=== PATIENT | female | born 1985 ===

== ENCOUNTER 2025-01-16 05:29 | Day surgery (SDC) | payer OTHER ==
[2025-01-10 13:54] VITALS: BP 105/67
[2025-01-10 15:16] LABS: RH POSITIVE
[~2025-01-16] VITALS: Ht 167.6 cm; Wt 66.2 kg
[~2025-01-16 05:29] MED LIST: NUVARING VAGIN1 EACH; SUMATRIPTAN20 MG
[2025-01-16] MEDS ORDERED: CEFAZOLIN SODIUM 1,000 MG VIAL ONE (06:49)
[2025-01-16] MEDS ORDERED: HEPARIN SODIUM,PORCINE 5,000 UNITS/ML VIAL ONE (06:49)
[2025-01-16] MEDS ORDERED: POVIDONE-IODINE 118 ML BOTT TOP ONE (06:49)
[2025-01-16] MEDS ORDERED: METRONIDAZOLE/SODIUM CHLORIDE 500 MG/100 ML PIGGYBACK IV ONE (06:49)
[2025-01-16] MEDS ORDERED: BUPIVACAINE HCL/MPF 0.5% 30ML VIAL ONE (07:40)
[2025-01-16] MEDS ORDERED: VISTASEAL DUAL APPICATOR 1 EACH APPL TOP ONE (09:36)
[2025-01-16] MEDS ORDERED: THROMBIN,HU/FIBRINOGEN/CALCIUM 10 ML SYRINGE TOP ONE (09:36)
[2025-01-16] MEDS ORDERED: SUGAMMADEX SODIUM 200 MG/2 ML VIAL IV ONE (10:04)
[2025-01-16] MEDS ORDERED: MORPHINE SULFATE 4 MG/ML VIAL IV ONE ×2 (10:55→11:25)
[2025-01-16] MEDS ORDERED: RINGERS SOLUTION,LACTATED 1,000 ML IV SCH (11:15)
[2025-01-16] MEDS ORDERED: ACETAMINOPHEN 500 MG GEL..CAP PO SCH (12:00)
[2025-01-16] MEDS ORDERED: KETOROLAC TROMETHAMINE 30 MG VIAL IV SCH (12:00)
[2025-01-16] MEDS ORDERED: KETOROLAC TROMETHAMINE 30 MG VIAL ONE (12:07)
[2025-01-16] MEDS ORDERED: ONDANSETRON HCL 2 MG/ML VIAL ONE (12:12)
[2025-01-16] MEDS ORDERED: ONDANSETRON HCL 2 MG/ML VIAL IV ONE (12:15)
[2025-01-16 12:47] VITALS: BP 106/69
[2025-01-16] MEDS ORDERED: GABAPENTIN 300 MG CAPSULE PO SCH (17:00)
== END 2025-01-16 16:20 | disposition home or self-care (01) ==
LOC: CIR.AMB 05:29 → SURH 05:29 → O/R 05:29 → OB/GYN 11:32 → EDSTATUS 12:30 → SURH 12:30 → OB/GYN 16:20 → CIR.AMB 16:20
PROVIDERS: ATTEND Student in an Organized Health Care Education/Training Program
DX: N80.03 Adenomyosis of the uterus (principal); N72 Inflammatory disease of cervix uteri; N80.353 Endometriosis of bilateral pelvic sidewall, unspecified depth; N80.519 Endometriosis of the rectum, unspecified depth; Z88.5 Allergy status to narcotic agent